=== PATIENT | male | born 1980 | race Caucasian/White ===

== ENCOUNTER 2019-05-23 10:35 | Inpatient (IN) | payer MEDICAID ==
[~2019-05-23] VITALS: Ht 167.6 cm; Wt 82.9 kg
--- NOTE | ~2019-05-23 | HEMODYNAMI ---
PATIENT:MARCELA PALUMBO MEDICAL RECORD: [id number] : [birth year] [id number] ADMISSION DATE: 05/23/19 Generatedon:05/24/201914:56 Patient name: MARCELA PALUMBO Patient #: [id number] SSN: [id number] : 1980 Date of study: 05/24/2019 Page: Of Hemodynamic Procedure Report Patient Data Patient Demographics Procedure consent was obtained First Name: MARCELA Gender: Male Last Name: DEEPALI : 1980 Middle Initial: NADINE Age: 39 year(s) Patient #: [id number] Race: SSN: [id number] Additional ID: [id number] Contact details Address: [address] [place] [address] State: [place] City: [place] Zip code: [address] Admission Admission Data Admission Date: 05/23/2019 Admission Time: 13:37 Arrival Date: 05/24/2019 Arrival Time: 13:37 Admit Source: Other Insurance Payor: Private Room #: D.2120 health insurance Height (in.): 65.75 BSA: 1.92 (m2) Height (cm.): 167 BMI: 29.76 (kg/m2) Weight (lbs.): 182.98 Weight (kg.): 83 Lab Results Lab Result Date: 05/24/2019 Lab Result Time: 0:00 Biochemistry Name Units Result Min Max BUN mg/dl 9 --(*---)-- 7 18 Creatinine mg/dl 0.8 --(-*--)-- 0.6 1.3 CBC Name Units Result Min Max Hemoglobin g/dl 12.9 -*(----)-- 13.5 17.5 Procedure Procedure Types Cath Procedure Diagnostic Procedure LHC LHC w/Coronaries w/Grafts Aortic Root Angiography Sedation Charges Moderate Sedation up to 15 minutes Procedure Description Procedure Date Procedure Date: 05/24/2019 Procedure Start Time: 14:40 Procedure End Time: 14:53 Procedure Staff Name Function Paul Palomo MD Performing Physician Akilah Kuhn RT Monitor Chun James RT Scrub Deborah Snyder RT Scrub Amadeo Villareal RN Nurse Indication Unstable angina Procedure Data Cath Procedure Fluoroscopy Diagnostic fluoroscopy Total fluoroscopy Time: 3 time: 3 min min Diagnostic fluoroscopy Total fluoroscopy dose: 646 dose: 646 mGy mGy Contrast Material Contrast Material Type Amount (ml) Isovue 300 111 Entry Location Entry Primary Successful Side Size Upsize Upsize Entry Closure Succes sful Closure Location (Fr) 1 (Fr) 2 (Fr) Remarks Device Remarks Femoral Right 5 Fr Exoseal artery Estimated blood loss: 5 ml Diagnostic catheters Device Type Used For End Catheter Placement MULTIPACK JL 4.0 5Fr Left Coronary catheter Angiography MULTIPACK 3DRC 5Fr Right Coronary catheter Angiography MULTIPACK Pigtail 5 Fr LV Angiography catheter Procedure Complications No complications Procedure Medications Medication Administration Route Dosage 0.9% NaCl I.V. 100 ml/hr Oxygen etCO2 Nasal cannula 2 l/min Heparin Flush Bag added to field 2 bags (1000units/500ml NS) Lidocaine 2% added to field 20 Versed I.V. 2 mg Fentanyl I.V. 100 mcg Fentanyl I.V. 100 mcg Versed I.V. 2 mg Hemodynamics Rest BSA: 1.92 (m2) HGB: 12.9 (g/dl) O2 Consumption: Estimated: 231.5 (ml/min) O2 Con sumption indexed: Estimated:120.57 (ml/min/m) Heart Rate: 66 (bpm) Pressure Samples Time Site Value (mmHg) Purpose Heart Use Rate(bpm) 14:48 LV 145/10,10 Snapshot 81 14:48 AO 120/80(100) Pullback 78 14:48 LV 124/14,17 Pullback 78 Gradients Valve Time Site 1 Site 2 Mean SEP/DFP Peak To Heart Use (mmHg) (sec/min) Peak Rate (mmHg) (bpm) Aortic 14:48 LV AO 4 15 4 78 124/14,17 120/80(100) Calculations Valve P-P Mean Valve Index Valve Source Name Gradient Area Flow (cm2) Aortic 4 4 4 4 Snapshots Pre Cath Intra NCS Post Cath Vital Signs Time Heart Resp SPO2 etCO2 NIBP (mmHg) Rhythm Pain Sedation Rate (ipm) (%) (mmHg) Status Level (bpm) 14:34:16 68 15 99 0 151/91(120) NSR 0 (11) 10(A) , No pain 14:38:36 73 15 99 39.7 129/84(101) NSR 0 (11) 10(A) , No pain 14:42:46 74 15 99 24 129/88(107) NSR 0 (11) 10(A) , No pain 14:46:58 75 16 98 42.7 135/76(99) NSR 0 (11) 10(A) , No pain 14:51:12 75 18 99 40.4 135/79(109) NSR 0 (11) 10(A) , No pain Medications Time Medication Route Dose Verified Delivered Reason Notes Eff ectiveness by by 14:38:42 0.9% NaCl I.V. 100 Amadeo Amadeo Per ml/hr Mono Villareal physician RN RN 14:38:52 Oxygen etCO2 2 Amadeo Amadeo for low 02 Nasal l/min Lorigan Lorigan sats cannula RN RN 14:39:03 Heparin Flush added 2 Amadeo Amadeo used for Bag to bags Lorigan Lorigan procedure (1000units/500ml field RN RN NS) 14:39:14 Lidocaine 2% added 20ml Amadeo Amadeo for local to vial Lorigan Lorigan anesthetic field RN RN 14:40:43 Versed I.V. 2 mg Amadeo Amadeo for Lorigan Lorigan sedation RN RN 14:40:50 Fentanyl I.V. 100 Amadeo Amadeo for mcg Lorigan Lorigan sedation RN RN 14:44:06 Fentanyl I.V. 100 Amadeo Amadeo for mcg Lorigan Lorigan sedation RN RN 14:44:19 Versed I.V. 2 mg Amadeo Amadeo for Lorigan Lorigan sedation RN patternmaker metal bench Log Time Note 14:15:03 Amadeo Villareal RN sent for patient. Start room use. 14:19:40 Diagnostic Cath Status : Elective 14:20:20 Indication : Unstable angina 14:20:40 Informed consent obtained and on chart 14:23:54 Lab Result : BUN 9 mg/dl 14:23:54 Lab Result : Hemoglobin 12.9 g/dl 14:23:54 Lab Result : Creatinine 0.8 mg/dl 14:23:59 Admit Source: Other 14:24:01 Arrival Date: 05/24/2019 1:37:00 PM 14:24:22 Insurance Payor : Private health insurance 14:24:31 Patient Height : 65.75 inches 14:24:36 Patient Weight : 182.98 lbs 14:24:45 ACC Patient presents with Unstable Angina CCS Anginal Class 2--Slight limitation of ordinary activity. 14:24:49 ACCPatient has been prescribed/administered the following anti-anginal medication within the last 2 weeks: None 14:24:56 Procedure Status Urgent Heart Cath (IP). 14:25:10 Time tracking: Regular hours (M-F 7:00 - 5:00) 14:25:14 Plan of Care:Hemodynamics will remain stable., Cardiac rhythm will remain stable., Comfort level will be maintained., Respiratory function will remain adequate., Patient/ family verbilizes understanding of procedure., Procedure tolerated without complication., Recovers from procedure without complications.. 14:25:45 Patient received from Med II to CCL 2 Alert and oriented. Tansferred to table in Supine position. 14:25:46 Warm blankets applied, and óscar hugger turned on for patient comfort. 14:25:47 Correct patient and procedure confirmed by team. 14:25:47 Correct patient and procedure confirmed by team. 14:25:49 ECG and BP/O2 sat monitors applied to patient. 14:33:03 Vital chart was started 14:33:04 Baseline sample Acquired. 14:33:08 Rhythm: sinus rhythm 14:33:09 Full Disclosure recording started 14:33:15 H&P Date Dictated: 05/24/2019 New H&P dictated by physician.. 14:33:16 Pre-procedure instructions explained to patient. 14:33:17 Pre-op teaching completed and patient verbalized understanding. 14:33:18 Family in waiting room. 14:33:19 Patient NPO since Midnight. 14:33:31 Is the patient allergic to Iodine/contrast media? No. 14:33:32 Was the patient premedicated? No 14:33:35 Is patient on blood thinner?No 14:33:50 Patient diabetic? No. 14:33:52 Previous problem with sedation/anesthesia? No ? 14:33:54 Snore? Yes 14:33:55 Sleep apnea? No 14:33:56 Deviated septum? No 14:33:56 Opens mouth fully? Yes 14:33:57 Sticks out tongue? Yes 14:33:59 Airway obstruction? No ? 14:34:11 Dentures? No ? 14:34:17 Pre procedure: right dorsailis pedis pulse 2+ Normal; easily identifiable; not easily obliterated 14:34:20 Pre procedure: left dorsailis pedis pulse 2+ Normal; easily identifiable; not easily obliterated 14:34:22 Patient pain scale 0/10 ?. 14:34:28 IV patent on arrival in left forearm with 0.9% NaCl at [facility]. 14:34:30 Lab results completed and on chart. 14:34:33 Alarms reviewed by R. N. 14:34:33 Sharps counted by scrub and verified by R.N. 14:34:35 Physician arrived 14:34:36 --------ALL STOP TIME OUT------ 14:34:36 Final Timeout: patient, procedure, and site verified with staff and physician. All members of the team are in agreement. 14:34:38 Right groin site verified by team. 14:34:41 Fire Safety Assessment: A--An alcohol-based skin anteseptic being used preoperatively., C--Open oxygen or nitrous oxide is being used., D--An ESU, laser, or fiber-optic light is being used. 14:35:30 Physical assessment completed. ASA score P 2 - A patient with mild systemic disease as per Paul Palomo MD. 14:35:38 1) 90+ Normal kidney functon but urine findings or structural abnormalities or genetic trait point to kidney disease. 14:35:41 Maximum allowable contrast dose (3.7 X eGFR X 0.75)250 ml. 14:35:45 Sedation plan: IV Moderate Sedation Medication:Versed, Fentanyl 14:36:51 Use device set Femoral Dx 14:36:52 ACIST Syringe (09147) opened to sterile field. 14:36:53 Bag Decanter (2002) opened to sterile field. 14:36:53 Medline Cath Pack ([id number]) opened to sterile field. 14:36:54 ACIST Hand Control (52924) opened to sterile field. 14:36:55 ACIST Manifold (48597) opened to sterile field. 14:36:55 DIAGNOSTIC Multipack 5Fr catheter set (VX2596) opened to sterile field. 14:36:56 Tegaderm 4 x 4 (1626W) opened to sterile field. 14:36:57 EMERALD Guide Wire (124-942) opened to sterile field. 14:36:59 SHEATH 5FR Aurora (ZUA947) opened to sterile field. 14:38:42 0.9% NaCl 100 ml/hr I.V. was administered by Amadeo Villareal RN; Per physician; 14:38:52 Oxygen 2 l/min etCO2 Nasal cannula was administered by Amadeo Villareal RN; for low 02 sats; 14:39:03 Heparin Flush Bag (1000units/500ml NS) 2 bags added to field was administered by Amadeo Villareal RN; used for procedure; 14:39:14 Lidocaine 2% 20ml vial added to field was administered by Amadeo Villareal RN; for local anesthetic; 14:39:17 Procedure started. 14:40:22 Local anesthetic to right femoral artery with Lidocaine 2% by Paul Palomo MD.INITIAL ACCESS ONLY 14:40:33 A 5 Fr sheath was inserted into the Right Femoral artery 14:40:43 Versed 2 mg I.V. was administered by Amadeo Villareal RN; for sedation; 14:40:50 Fentanyl 100 mcg I.V. was administered by Amadeo Villareal RN; for sedation; 14:41:17 A MULTIPACK JL 4.0 5Fr catheter was advanced over the wire and used for Left Coronary Angiography. 14:41:23 Zero performed for pressure channel P1 14:42:35 LCA angiography performed. 14:42:38 Injector settings: Ml/sec: 3, Volume: 6, 14:44:06 Fentanyl 100 mcg I.V. was administered by Amadeo Villareal RN; for sedation; 14:44:19 Versed 2 mg I.V. was administered by Amadeo Villareal RN; for sedation; 14:44:51 Catheter removed. 14:44:56 A MULTIPACK 3DRC 5Fr catheter was advanced over the wire and used for Right Coronary Angiography. 14:46:27 ACCDominant side:Left 14:46:33 RCA angiography performed. 14:46:36 Injector settings: Ml/sec: 3, Volume: 6, 14:46:56 Catheter removed. 14:47:03 A MULTIPACK Pigtail 5 Fr catheter was advanced over the wire and used for LV Angiography. 14:48:17 LV hemodynamics recorded. 14:48:18 LV gram done using JACOBS 14:48:21 Injector settings: Ml/sec: 5, Volume: 15, 14:48:43 EF : 55 % 14:51:06 Catheter removed. 14:51:07 EXOSEAL 5Fr (EX500) opened to sterile field. 14:51:25 Sheath removed intact; hemostasis achieved with Exoseal to the Right Femoral artery. 14:51:27 Procedure ended.(Physican Out) 14:52:49 Fluoroscopy time 03.00 minutes. 14:52:53 Fluoroscopy dose: 646 mGy 14:52:53 Flurop Dose total: 646 14:52:59 Dose Area Product 94439 mGy/cm. 14:53:03 Contrast amount:Isovue 300 111ml. 14:53:05 Sharps counted by scrub and verified by R.N. 14:53:06 Insertion/operative site no bleeding no hematoma. 14:53:10 Post-op/insertion site Right Femoral artery dressed using a 4 x 4 and Tegaderm. 14:53:12 Post Procedure Pulses reassessed and unchanged 14:53:15 Post procedure rhythm: unchanged. 14:53:17 Estimated blood loss: 5 ml 14:53:19 Post procedure instruction explained to patient.Patient verbalizes understanding. 14:53:19 Patient needs reinforcement of post procedure teaching. 14:53:36 Procedure type changed to Cath procedure, Diagnostic procedure, LHC, LHC w/Coronaries w/Grafts, Aortic Root Angiography, Sedation Charges, Moderate Sedation up to 15 minutes 14:53:37 Procedure and supply charges have been captured, reviewed, submitted and are correct. 14:53:42 Procedure Complication : No complications 14:53:45 Vital chart was stopped 14:53:45 See physician's report for complete and final results. 14:53:48 Report given to [facility] II. 14:53:50 Patient transfered to Med II with Stretcher. 14:53:52 Procedure ended. 14:53:52 Full Disclosure recording stopped 14:53:56 End room use (Document Last) Device Usage Item Name Manufacture Quantity Catalog Hospital Part Current Minimal L ot# / Number Charge Number Stock Stock Serial# Code ACIST Acist 1 00170 257099 686453 192928 20 [place] (04942) Systems Inc Bag Microtek 1 2001S 164488 18195 698883 5 Decanter Medical Inc. () Medline Medline 1 [id number] 630162 79115 746511 5 Cath Pack ([id number]) ACIST Hand Acist 1 12562 510672 080703 606274 5 Control Medical (57984) Systems Inc ACIST Acist 1 46737 544193 347544 833328 5 Manifold Medical (95170) Systems Inc DIAGNOSTIC Cardinal 1 RZ8119 488692 19760 010578 30 Multipack Health 5Fr catheter set (QZ3443) Tegaderm 4 3M 1 1626W 126705 407543 333670 5 x 4 (1626W) EMERALD Cardinal 1 749-930 760614 702496 273543 5 Guide Wire Health (502-849) SHEATH 5FR Terumo 1 OVI310 497956 175645 076233 5 Aurora (TSG253) MULTIPACK Cardinal 1 174279 5 JL 4.0 5Fr Health catheter MULTIPACK Cardinal 1 584529 5 3DRC 5Fr Health catheter MULTIPACK Cardinal 1 576418 5 Pigtail 5 Health Fr catheter EXOSEAL 5Fr Cardinal 1 EX500 858637 948595 829755 10 (EX500) Health Signature Audit [place] Stage Time Signature Unsigned Intra-Procedure 05/24/2019 Akilah Kuhn 2:56:10 PM RT(R) Signatures Performing Physician : Signature : Paul Palomo MD Date : Time : Monitor : Akilah Kuhn RT Signature : Date : Time : Nurse : Amadeo Villareal Signature : RN Date : Time : [facility] [address] [place] [address]
[2019-05-23] MEDS ORDERED: COREG25 MG PO (10:41)
[2019-05-23] MEDS ORDERED: ISOSORBIDE DINI30 MG PO (10:41)
[2019-05-23] MEDS ORDERED: NORVASC5 MG PO (10:42)
[2019-05-23] MEDS ORDERED: CRESTOR20 MG PO (10:42)
[2019-05-23] MEDS ORDERED: LUNESTA1 MG PO (10:42)
[2019-05-23] MEDS ORDERED: NITROSTAT0.4 MG SL (10:43)
[2019-05-23] MEDS ORDERED: ZANTAC300 MG PO (10:43)
[2019-05-23] MEDS ORDERED: BAYER CHEWABLE81 MG PO (10:47)
[2019-05-23] MEDS ORDERED: ATIVAN1 MG PO (10:47)
[2019-05-23 11:01] LABS: BASOPHILS 0.4 % (0-2); EOSINOPHILS 2.6 % (0-7); HEMATOCRIT 41.4 % (42.0-54.0); HEMOGLOBIN 14.3 g/dL (13.5-17.5); IMMATURE GRANULOCYTES 0.3 % (0-5); LYMPHOCYTES 21.8 % (15-50); MCH 28.3 pg (26.0-34.0); MCHC 34.5 g/dL (31.0-37.0); MCV 81.8 fL (80.0-100.0); MEAN PLATELET VOLUME 10.9 fL (7.4-10.4); MONOCYTES 7.1 % (2-11); NEUTROPHILS 67.8 % (40-80); PLATELET COUNT 172 10x3/uL (130-400); RBC 5.06 10x6/uL (4.20-6.10); RDW 13.9 % (11.5-14.5); WBC 7.3 10x3/uL (4.8-10.8)
[2019-05-23 11:15] LABS: APTT 27.8 SECONDS (22.8-39.4); INR 0.95 (0.85-1.17); PROTIME 12.2 SECONDS (11.6-15.0)
--- NOTE | 2019-05-23 11:24 | NUR ---
PT IN WITH C/O CHEST PAIN THAT STARTED THIS MORNING, RIGHT FLANK PAIN THAT STARTED IN THE MIDDLE OF THE NIGHT. PATIENT IS WITHOUT DISTRESS AT THIS TIME. MD TO BEDSIDE,
[2019-05-23 11:28] LABS: APPEARANCE CLEAR (CLEAR); BILIRUBIN NEGATIVE (NEGATIVE); COLOR YELLOW (YELLOW); GLUCOSE NEGATIVE (NEGATIVE); KETONE NEGATIVE (NEGATIVE); NITRITE POSITIVE (NEGATIVE); PROTEIN NEGATIVE (NEGATIVE); UROBILINOGEN NORMAL (NORMAL)
[2019-05-23 11:29] LABS: ALBUMIN 3.9 g/dL (3.4-5.0); ALKALINE PHOSPHATASE 74 U/L (46-116); ALT (SGPT) 32 U/L (10-68); BILIRUBIN - TOTAL 0.34 mg/dL (0.2-1.3); CALC OSMOLALITY 284 mosm/kg (275-300); CALCIUM 9.3 mg/dL (8.5-10.1); CHLORIDE - SERUM 106 mmol/L (98-107); CREATININE - SERUM 0.7 mg/dL (0.6-1.3); GLUCOSE 95 mg/dL (74-106); POTASSIUM - SERUM 3.4 mmol/L (3.5-5.1); PROTEIN - SERUM 7.6 g/dL (6.4-8.2); SODIUM 144 mmol/L (136-145); UREA NITROGEN 8 mg/dL (7-18); eGFR NON AFRICAN AMERICAN > 90 mL/min (90-120)
[2019-05-23 11:30] LABS: EPITHELIAL CELLS 0-5 /hpf (0-5); WHITE CELLS - URINE 0-5 /hpf (0-5)
[2019-05-23 11:31] LABS: BACTERIA FEW /hpf (NONE SEEN)
[2019-05-23 11:39] LABS: AMYLASE - SERUM 20 U/L (25-115); CKMB 0.3 U/L (0.0-3.6); CREATINE KINASE 90 UL (21-232); LIPASE 106 U/L (73-393); MAGNESIUM - SERUM 1.7 mg/dL (1.8-2.4)
[2019-05-23 11:45] LABS: TROPONIN-I < 0.017 ng/mL (0.000-0.060)
--- NOTE | 2019-05-23 12:38 | NUR ---
STATES HIS CHEST PAIN IS 0, BUT HIS RIGHT FLANK PAIN IS A 9, MD NOTIFIED.
[2019-05-23 13:00] VITALS: BP 122/71
--- NOTE | 2019-05-23 13:56 | NUR ---
ATTEMPTED TO CALL REPORT.
--- NOTE | 2019-05-23 14:43 | NUR ---
RECEIVED REPORT FROM GALE IN THE ED.
--- NOTE | 2019-05-23 14:52 | NUR ---
TO ROOM VIA WHEELCHAIR WITH IV LEVAQUIN INFUSING TO LEFT AC.
[2019-05-23] MEDS ORDERED: CRESTOR40 MG PO (14:56)
[2019-05-23] MEDS ORDERED: OXYCONTIN10 MG PO (14:59)
[2019-05-23 15:02] VITALS: BP 142/92; BMI 31.3
--- NOTE | 2019-05-23 17:11 | NUR ---
I CALLED [facility], REAM CUTTER FOR POTASSIUM ORAL 40 MEQ TAB AND PROTONIX 40 MG TAB PHARMACY IS ALREADY CLOSED.
[2019-05-23 17:55] LABS: CKMB 0.2 U/L (0.0-3.6); CREATINE KINASE 75 UL (21-232)
[2019-05-23 17:56] LABS: TROPONIN-I < 0.017 ng/mL (0.000-0.060)
[2019-05-23 20:00] VITALS: BP 111/75
--- NOTE | 2019-05-23 20:24 | NUR ---
RECIEVED UP IN BED WITH EYES OPEN AND TV ON. ALERT AND ORIENTED X4. RATES PAIN AT 3 AND STATES "THAT ACCEPTABLE". IV TO LEFT FA SL.. DENIES ANY NEEDS AT THIS TIME.
[2019-05-23 23:51] LABS: CKMB 0.1 U/L (0.0-3.6); CREATINE KINASE 75 UL (21-232); POTASSIUM - SERUM 3.5 mmol/L (3.5-5.1); TROPONIN-I < 0.017 ng/mL (0.000-0.060)
[2019-05-24] VITALS: BP 131/83
[2019-05-24 04:00] VITALS: BP 138/96
[2019-05-24 05:35] LABS: BASOPHILS 0.6 % (0-2); HEMATOCRIT 38.2 % (42.0-54.0); HEMOGLOBIN 12.9 g/dL (13.5-17.5); IMMATURE GRANULOCYTES 0.2 % (0-5); MCH 27.9 pg (26.0-34.0); MCHC 33.8 g/dL (31.0-37.0); MCV 82.5 fL (80.0-100.0); MONOCYTES 12.1 % (2-11); NEUTROPHILS 45.1 % (40-80); PLATELET COUNT 161 10x3/uL (130-400); RBC 4.63 10x6/uL (4.20-6.10); RDW 13.9 % (11.5-14.5)
[2019-05-24 05:53] LABS: WBC 4.6 10x3/uL (4.8-10.8)
[2019-05-24 06:27] LABS: ALBUMIN 3.4 g/dL (3.4-5.0); ALKALINE PHOSPHATASE 68 U/L (46-116); ALT (SGPT) 32 U/L (10-68); BILIRUBIN - TOTAL 0.35 mg/dL (0.2-1.3); CALC OSMOLALITY 281 mosm/kg (275-300); CALCIUM 8.7 mg/dL (8.5-10.1); CARBON DIOXIDE 27.1 mmol/L (21.0-32.0); CHLORIDE - SERUM 106 mmol/L (98-107); CKMB 0.2 U/L (0.0-3.6); CREATINE KINASE 68 UL (21-232); CREATININE - SERUM 0.8 mg/dL (0.6-1.3); GLUCOSE 102 mg/dL (74-106); MAGNESIUM - SERUM 1.8 mg/dL (1.8-2.4); POTASSIUM - SERUM 3.4 mmol/L (3.5-5.1); PROTEIN - SERUM 6.9 g/dL (6.4-8.2); SODIUM 142 mmol/L (136-145); UREA NITROGEN 9 mg/dL (7-18); eGFR NON AFRICAN AMERICAN > 90 mL/min (90-120)
[2019-05-24 06:28] LABS: TROPONIN-I < 0.017 ng/mL (0.000-0.060)
--- NOTE | 2019-05-24 07:30 | NUR ---
ASSESSMENT COMPLETED. ALERT AND ORIENTED. TELEMERTY SHOWS SR, SL TO LEFT FA. PT IS NPO FOR CATH. SR UP WITH CALL LIGHT IN REACH. WILL MONITOR
[2019-05-24 08:44] VITALS: BP 142/93
[2019-05-24 13:50] VITALS: BP 120/79
--- NOTE | 2019-05-24 14:30 | CN ---
PATIENT NAME:MARCELA PALUMBO MEDICAL RECORD: [id number] : [birth year] LOCATION:D. D.2120 ADMIT DATE: 05/23/19 ACCOUNT: [id number] CONSULTING PHYSICIAN: DORIS HERBERT MD REFERRING PHYSICIAN: MILANA VALERA MD DATE OF CONSULTATION: 05/24/2019 HISTORY OF PRESENT ILLNESS: Marcela Palumbo is a 39-year-old gentleman with a history of premature coronary artery disease, status post coronary artery bypass grafting, most recent intervention in November of this year. He has been having increasing angina, typically followed in [place] was started on nitrates. He continued to have angina, had rest symptomology, class IV angina at this point reminiscent of his previous angina prior to bypass grafting intervention. We are asked to see him concerning his cardiovascular status. PAST MEDICAL HISTORY: Includes: 1. History of hypertension. 2. Dyslipidemia. 3. Coronary artery disease as described above. MEDICATIONS: Include carvedilol 25 b.i.d., Imdur 30 daily, amlodipine 5 mg p.o. daily, Crestor 40 every day, aspirin 81 every day, Lunesta 1 mg q.h.s. p.r.n., Ativan 1 p.o. t.i.d., OxyContin 20 mg p.o. b.i.d., Zantac 300 every day. SOCIAL HISTORY: Smokes about a pack a day, nondrinker. Easily takes care of all his ADLs. REVIEW OF SYSTEMS: The patient reports easy bruising but reports no swollen glands. The patient reports no fever, no night sweats, no significant weight gain, no significant weight loss. No significant exercise tolerance. The patient reports no dry eyes, no irritation, no vision change. Patient reports no difficulty hearing and no ear pain. Patient reports no frequent nose bleeds or nose and sinus problems. Patient reports on arm pain on exertion. No shortness of breath while lying down. No history of heart murmur. Patient reports no cough, no wheezing or coughing up blood. Patient reports no abdominal pain, no vomiting. Normal appetite. No diarrhea and not vomiting blood. No nausea and no constipation. Patient reports no incontinence. No difficulty urinating. No hematuria. No increased frequency. Patient reports no muscle aches. No weakness, no arthralgias, no back pain. No swelling of the extremities. Patient reports no abnormal mole, no jaundice, no rashes. Reports no loss of consciousness. No weakness and no numbness. No seizures, dizziness, or headaches. The patient reports no depression, no sleep disturbance, feeling safe in a relationship and no alcohol abuse. Patient reports on fatigue. Reports no runny nose or sinus pressure. No itching, no hives, and no frequent sneezing. PHYSICAL EXAMINATION: GENERAL: A well-developed, well-nourished gentleman, in no acute distress, appears stated age. VITAL SIGNS: Blood pressure 138/96, pulse 63 and regular. HEENT: Normocephalic and atraumatic. NECK: No JVD or bruit. HEART: Regular. II/ systolic ejection murmur. LUNGS: Good air excursion. ABDOMEN: Soft and nontender. Pulses 2+. There is no edema. CONSULT REPORT [id number] MARCELA PALUMBO EKG Shows nonspecific ST-T changes inferiorly. IMPRESSION: Acute coronary syndrome, class IV angina despite calcium channel blockade, beta konrad and the long-acting nitrates. We will plan for angiography, intervention based on the above. TRANSINT:[id number] Voice Confirmation ID: [id number] DOCUMENT ID: [id number] DORIS HERBERT MD at 1430 CC: [id number] DICTATION DATE: 05/24/19 1114 AUTOMATIC BUFFING WHEEL FORMER: 05/24/19 1133 ADM IN [place] [address] [place] [address]
[2019-05-24 14:59] VITALS: Ht 167.6 cm; Wt 82.9 kg
[2019-05-24] MEDS ORDERED: ASPIRIN325 MG PO (15:19)
[2019-05-24] MEDS ORDERED: Nicoderm [PBKC] TRANSDERM (15:19)
[2019-05-24] MEDS ORDERED: CIPRO500 MG PO (15:20)
[2019-05-24] MEDS ORDERED: RANEXA500 MG PO (15:20)
[2019-05-24] MEDS ORDERED: OXYCONTIN10 MG PO (15:22)
--- NOTE | 2019-05-24 15:22 | NUR ---
BACK FROM CANDLE MAKING SUPERVISOR. RIGHT GROIN SOFT WITH DRSG DRY AND INACT. PPP. DENIES ANY NEEDS. SR UP WITH CALL LIGHT IN REACH, FAMITY AT BEDSIDE. TELEMEMERTY SHOWS SR
--- NOTE | 2019-05-24 17:22 | MORECARE ---
CASE MANAGEMENT DISCHARGE SUMMARY PATIENT: MARCELA PALUMBO UNIT: [id number] ADM DATE: 05/23/19 AGE: 39 : [birth year] SEX: M ROOM/BED: D.2120 AUTHOR: GRANT,DOC PHYSICIAN: REFERRING PHYSICIAN: MILANA VALERA MD DATE OF SERVICE: 05/24/19 Discharge Plan Patient Name: MARCELA PALUMBO Facility: [facility]:[place] : 1980 Planned Disposition: Home Anticipated Discharge Date: 05/24/19 Discharge Date: Expected LOS: 1 Initial Reviewer: [email or web address] Initial Review Date: 05/24/2019 Generated: 05/24/19 6:22 pm Comments DCP- Discharge Planning Updated by [email or web address]: Wilder Muniz on 05/24/19 4:[address] Patient Name: MARCELA PALUMBO Admission Status: ER Accout number: [id number] Admission Date: 05-23-2019 : 1980 Admission Diagnosis: Attending: MILANA VALERA Current LOS: 1 Anticipated DC Date: 05-24-2019 Planned Disposition: Home Primary Insurance: [place] PRIVATE OPTIONS JIM Discharge Planning Comments: CM MET WITH PT IN ROOM TO DISCUSS DISCHARGE PLANNING AND NEEDS. PT REPORTS LIVING AT HOME INDEPENDENTLY WITH HIS STED FATHER AND PT'S GIRLFRIEND. PT HAS NO MEDICAL EQUIPMENT AND NO OUTSIDE SERVICES ASSISTING IN THE HOME. CM DISCUSSED AVAILABILITY OF HOME HEALTH, REHAB SERVICES AND MEDICAL EQUIPMENT. PT DENIES DISCHARGE NEEDS, REPORTS HIS GIRLFRIEND WILL PICK HIM UP FOR DISCHARGE HOME. Route Contractor: Wilder Muniz DCPIA - Discharge Planning Initial Assessment Updated by [email or web address]: Wilder Muniz on 05/24/19 5:14 pm * Is the patient Alert and Oriented? Yes * How many steps to enter\exit or inside your home? NONE * P[facility] * Pharm[facility] * Preadmission Environment Home with Family * ADLs Independent * Equipment None * Other Equipment NO MEDICAL EQUIPMENT PROVIDER PREFERENCE * List name and contact numbers for known caregivers / representatives who currently or will assist patient after discharge: RACHNA MEDINA, GIRLFRIEND, * Verbal permission to speak to the caregivers and representatives has been obtained from the patient. N/A * Community resources currently utilized None * Please name any agencies selected above. NONE * Additional services required to return to the preadmission environment? No * Can the patient safely return to the preadmission environment? Yes * Has this patient been hospitalized within the prior 30 days at any hospital? No Patient Name: MARCELA PALUMBO Page [id number] at 1722 All edits/amendments must be made on the electronic document DICTATION DATE: 05/24/191721 MANAGER RELIABILITY: GANESH 05/24/191721 RPT#: [id number] DC DATE: STATUS: ADM IN [facility] [address] [place] [address] END OF REPORT
[2019-05-24 17:54] VITALS: BP 111/62
--- NOTE | 2019-05-24 18:47 | NUR ---
RIGHT GROIN WITH DRSG DRY AND INTACT. PPP. UP AND TO BE DISCHARGED AT 7. DENIES ANY NEEDS , CALL LIGHT IN REACH
--- NOTE | 2019-05-24 19:55 | NUR ---
IV D/C'D AND TELEMETRY D/C'D. DSG TO RIGHT GROIN CDI. ALERT AND ORIENTED X4. UP AD JESSE . DISCHAGE DISCUSSED WITH PT AND SRIPT GIVEN TO PT. ALL APPOINTMENTS REVIEWED. COPYS GIVEN TO PT. VERBAL UNDERSTANDING GIVEN. RECIEVED ALL PERSONAL BELONGING.
--- NOTE | 2019-05-25 13:11 | OP ---
PATIENT NAME: MARCELA PALUMBO MEDICAL RECORD: [id number] :[birth year] LOCATION:D.M2 D.2120 ADMISSION DATE:05/23/19 SURGEON: DORIS HERBERT MD DATE OF OPERATION: 05/24/2019 PROCEDURE: Left heart catheterization, selective coronary angiography, right femoral artery approach. CATHETERS: A 5-Lao sheath, 5/4 left and right Rain, 5/4 pig. The procedure was well tolerated. The patient was returned to [facility]. Sheath was removed. ExoSeal device was placed. FINDINGS: Left ventriculography in 30-degree JACOBS view: Normal wall motion. Normal systolic function. AORTIC ROOT: Aortic root injection was performed to assess for vein grafts that showed no patent vein grafts. CORONARY ANATOMY: LEFT MAIN: Left main is free of disease. LAD: It has previously placed stents. Distally, it is occluded and fills via competitive flow via ARAGON to LAD. CIRCUMFLEX: Left dominant system. There is a small high OM ramus branch, has an ostial stenosis; however, this is jailed by previously placed stent, not amenable to intervention. The distal PDA appears to be chronically occluded arising from the left. Right is rudimentary and has diffuse disease limited to LAD, ARAGON to LAD is widely patent. IMPRESSION: Small vessel disease, not amenable to intervention. We will add Ranexa for angina control. Further recommendations based on clinical course. TRANSINT:[id number] Voice Confirmation ID: [id number] DOCUMENT ID: [id number] DORIS HERBERT MD at 1311 CC: [id number] DICTATION DATE: 05/24/19 1503 FOUNDER CHAIRMAN AND CHIEF CREATIVE OFFICER: 05/24/19 1516 DIS IN 05/24/19 [facility] [address] [facility] [place] [address]
== END 2019-05-24 19:10 | disposition home or self-care (01) | DRG 287 ==
LOC: D.ER 10:35 → D.M2 13:37
PROVIDERS: Family Medicine; Internal Medicine Interventional Cardiology; ADMIT Internal Medicine Nephrology; ATTEND Internal Medicine Nephrology
PROC: B2151ZZ Fluoroscopy of Left Heart using Low Osmolar Contrast (ICD-10-PCS; 2019-05-24)
PROC: 4A023N7 Measurement of Cardiac Sampling and Pressure, Left Heart, Percutaneous Approach (ICD-10-PCS; 2019-05-24)
PROC: 3E073KZ Introduction of Other Diagnostic Substance into Coronary Artery, Percutaneous Approach (ICD-10-PCS; 2019-05-24)
PROC: B2111ZZ Fluoroscopy of Multiple Coronary Arteries using Low Osmolar Contrast (ICD-10-PCS; principal; 2019-05-24 14:15)
DX: I25.110 Atherosclerotic heart disease of native coronary artery with unstable angina pectoris (principal); N39.0 Urinary tract infection, site not specified; F17.213 Nicotine dependence, cigarettes, with withdrawal; I24.9 Acute ischemic heart disease, unspecified; I25.10 Atherosclerotic heart disease of native coronary artery without angina pectoris; E78.5 Hyperlipidemia, unspecified; E87.6 Hypokalemia; N20.0 Calculus of kidney; D64.9 Anemia, unspecified; K21.9 Gastro-esophageal reflux disease without esophagitis